=== PATIENT | male | born 1985 | race Caucasian/White ===

== ENCOUNTER 2018-05-01 06:46 | Emergency (ER) | payer MEDICAID ==
[~2018-05-01] VITALS: Ht 180.3 cm; Wt 147.4 kg
[2018-05-01 06:54] VITALS: BP 153/74
[2018-05-01] MEDS ORDERED: METHOCARBAMOL 500 MG TAB PO ONE (07:15)
[2018-05-01] MEDS ORDERED: KETOROLAC TROMETH 60MG/2ML VIAL IM ONE (07:15)
== END 2018-05-01 08:08 | disposition home or self-care (01) ==
LOC: ER 06:46
DX: M54.5 Low back pain (principal); V43.52XA Car driver injured in collision with other type car in traffic accident, initial encounter; Y93.I9 Activity, other involving external motion; Y92.488 Other paved roadways as the place of occurrence of the external cause; Y99.8 Other external cause status
CPT/HCPCS: 72100; 96372; 99283; J1885

== ENCOUNTER 2024-10-13 23:06 | Emergency (ER) | payer BC, MEDICAID ==
[~2024-10-13] VITALS: Ht 180.3 cm; Wt 139.9 kg
--- NOTE | 2024-10-13 23:21 | ED.PDOC ---
History of Present Illness HPI Comments 39 year old male presents to the ED for the c/c of flank pain. [place]. [place] the beach pt was running around chasing his son when he fell onto the left side of his body. Pt notes that upon falling he felt and heard a cracking noise coming from his rib cage and shoulder. Pt notes that he is also having rotator cuff pain. Pt notes that he when home, dropped off his family, then came straight to [facility] for evaluation. Pt denies any other associated symptoms, modifiers, recent injuries or sick contacts present at this time. Time Seen by MD: 23:15 Reviewed Notes: Nurses Notes, Medications, Allergies Allergies: Coded Allergies: NO KNOWN ALLERGIES (Unverified , 05/01/18) Home Meds Active Scripts Gabapentin (Once-Daily) (Gabapentin) 300 Mg Tab, 300 MG PO Q6HP PRN, #60 TAB Prov:MILEY ROSE MD 10/14/24 Information Source: Patient Mode of Arrival: Ambulatory Severity: Moderate Timing: Hours Duration: Since onset, Hours Prehospital treatment: None Past Medical History PAST MEDICAL HISTORY: Denies Surgical History: Denies all surgeries Family History Family History: Reviewed,noncontributory to illness, No family hx of Cancer, No family hx of DM, No family hx of Heart leonidas, No family hx of HTN, No family hx o fKidney leonidas, No family hx of Liver leonidas, No family hx of Lung leonidas, No family hx of Stroke Social History Smoker: Non-Smoker Alcohol: Denies ETOH Use Drugs: Denies Drug Use Lives In: Home Constitutional: denies: chills, diaphoresis, fatigue, fever, malaise, sweats, weakness, others EENTM: denies: blurred vision, double vision, ear bleeding, ear discharge, ear drainage, ear pain, ear ringing, eye pain, eye redness, hearing loss, mouth pain, mouth swelling, nasal discharge, nose bleeding, nose congestion, nose pain, photophobia, tearing, throat pain, throat swelling, voice changes, others Respiratory: denies: cough, hemoptysis, orthopnea, SOB at rest, shortness of breath, SOB with excertion, stridor, wheezing, others Cardiovascular: denies: chest pain, dizzy spells, diaphoresis, Dyspnea on exertion, edema, irregular heart beat, left arm pain, lightheadedness, palpitations, PND, syncope, others Gastrointestinal: denies: abdomen distended, abdominal pain, blood streaked bowels, constipated, diarrhea, dysphagia, difficulty swallowing, hematemesis, melena, nausea, poor appetite, poor fluid intake, rectal bleeding, rectal pain, vomiting, others Genitourinary: reports: flank pain (left); denies: burning, dysuria, frequency, hematuria, incontinence, penile discharge, penile sore, pain, testicle pain, testicle swelling, urgency, others Neurological: denies: dizziness, fainting, headache, left sided numbness, left sided weakness, numbness, paresthesia, pre-existing deficit, right sided numbness, right sided weakness, seizure, speech problems, tingling, tremors, weakness, others Musculoskeletal: reports: others (shoulder pain); denies: back pain, gout, joint pain, joint swelling, muscle pain, muscle stiffness, neck pain Integumetry: denies: bruises, change in color, change in hair/nails, dryness, laceration, lesions, lumps, rash, wounds, others Allergic/Immunocompromised: denies: Difficulty Healing, Frequent Infections, H bob, Itching, others Hematologic/Lymphatic: denies: anemia, blood clots, easy bleeding, easy bruising, swollen glands, others Endocrine: denies: excessive hunger, excessive sweating, excessive thirst, excessive urination, flushing, intolerance to cold, intolerance to heat, unexplained weight gain, unexplained weight loss, others Psychiatric: denies: anxiety, bipolar disorder, depression, hopeless, panic disorder, schizophrenia, sleepless, suicidal, others All Other Systems: Reviewed and Negative Physical Exam General Appearance: No Apparent Distress, Normal, Obese HEENT: Normal ENT Inspection, Pharynx Normal, TMs Normal Neck: Full Range of Motion, Non-Tender, Normal Respiratory: Chest Non-Tender, Lungs Clear, Normal Breath Sounds Cardiovascular: No Edema, No JVD, Normal Peripheral Pulses Breast Exam: Deferred Gastrointestinal: Non Tender, Soft Genitalia: Deferred Pelvic: Deferred Rectal: Deferred Extremities: No calf tenderness, Normal capillary refill, Normal inspection, Normal range of motion, Non-tender, No pedal edema Musculoskeletal : Apperance: Normal Neurologic: Alert, No Motor Deficits, Normal Mood Cerebellar Function: Normal Reflexes: Normal Skin: Dry, Normal Color, Warm Lymphatic: No Adenopathy Was a procedure done? Was a procedure done?: No Differential Dx Considerations may include: Differential diagnosis includes but is not limited to: ureteral colic / stone, Aortic aneurysm or dissection, pyelonephritis, acute renal failure, musculoskeletal etiology and others X-Ray, Labs, Meds, VS Vital Signs Date Time Temp Pulse Resp B/P (MAP) Pulse Ox O2 Delivery O2 Flow Rate FiO2 10/14/24 03:18 97.7 74 16 108/67 (81) 98 97.7 10/14/24 03:00 Room Air* 0 21 10/13/24 23:32 97.3 85 18 120/70 (87) 98 97.3 PATIENT: OFELIA GAXIOLA ACCT: [id number] UNIT: [id number] : 1985 LOC: ER ROOM / BED: / AGE / SEX: 39 / M ADM STATUS: REG ER SERVICE 14 ORDERING PHYSICIAN: MILEY ROSE MD PROCEDURE(s): LSHD2 - L SHOULDER 2+ VIEW XRAY REASON: pain fall injury ORDER NUMBER(s): [id number], ACCESSION NUMBER(s): [id number] CLINICAL INDICATION: pain fall injury TECHNIQUE: XY L SHOULDER 2+ VIEW XRAY Comparison: None FINDINGS: No osseous or joint abnormality identified with no fracture or dislocation. Soft tissues appear unremarkable. IMPRESSION: No fracture or dislocation. ENT: OFELIA GAXIOLA ACCT: [id number] UNIT: [id number] : 1985 LOC: ER ROOM / BED: / AGE / SEX: 39 / M ADM STATUS: REG ER SERVICE 14 ORDERING PHYSICIAN: MILEY ROSE MD PROCEDURE(s): LRIBS - L RIB X RAY REASON: fall pain injury ORDER NUMBER(s): [id number], ACCESSION NUMBER(s): [id number] EXAMINATION: XY L RIB X RAY INDICATION: fall pain injury COMPARISON: None TECHNIQUE: Frontal radiograph of the chest and radiographs of the left ribs FINDINGS: No pulmonary consolidation, edema pleural effusion, or pneumothorax. Normal cardiomediastinal silhouette. No displaced left rib fracture identified. IMPRESSION: No abnormality demonstrated. Time of 1ST Reevaluation: 23:45 Reevaluation 1ST: Unchanged Patient Education/Counseling: Diagnosis, Treatment Family Education/Counseling: No Family Present Departure 1 Departure Time of Disposition: 01:30 Impression: Primary Impression: Contusion of rib on left side Additional Impression: Sprain of left shoulder Disposition: HOME / SELF CARE / HOMELESS Condition: Stable e-Prescriptions Gabapentin (Once-Daily) (Gabapentin) 300 Mg Tab 300 MG PO Q6HP PRN, #60 TAB Prov: MILEY ROSE MD 10/14/24 Discharged With: Self Critical Care Note Critical Care Time?: No Stability Stability form required: No I personally scribed for MILEY ROSE MD ([email or web address]) on 10/13/24 at 23:21. Electronically submitted by Ramiro Melgar ([email or web address]). I personally scribed for MILEY ROSE MD ([email or web address]) on 10/14/24 at 01:30. Electronically submitted by Ramiro Melgar ([email or web address]). MILEY ROSE MD October 13, 2024 23:21
--- NOTE | 2024-10-14 00:53 | DVH ---
CLINICAL INDICATION: pain fall injury TECHNIQUE: XY L SHOULDER 2+ VIEW XRAY Comparison: None FINDINGS: No osseous or joint abnormality identified with no fracture or dislocation. Soft tissues appear unrem arkable. IMPRESSION: No fracture or dislocation.
--- NOTE | 2024-10-14 01:10 | DVH ---
EXAMINATION: XY L RIB X RAY INDICATION: fall pain injury COMPARISON: None TECHNIQUE: Frontal radiograph of the chest and radiographs of the left ribs FINDINGS: No pulmonary consolidation, edema pleural effusion, or pneumothorax. Normal cardiomediastinal silhou ette. No displaced left rib fracture identified. IMPRESSION: No abnormality demonstrated.
[2024-10-14] MEDS ORDERED: GABA300T4 PO (01:29)
[2024-10-14 03:18] VITALS: BP 108/67; PULSE 74; RESP 16; TEMP 97.7; O2SAT 98
== END 2024-10-14 03:19 | disposition home or self-care (01) ==
LOC: ER 23:06
DX: S43.402A Unspecified sprain of left shoulder joint, initial encounter (principal); S20.212A Contusion of left front wall of thorax, initial encounter; Z79.899 Other long term (current) drug therapy; W19.XXXA Unspecified fall, initial encounter; Y93.02 Activity, running; Y92.832 Beach as the place of occurrence of the external cause; Y99.8 Other external cause status
CPT/HCPCS: 71101; 73030